=== PATIENT | female | born 1995 | race Caucasian/White ===

== ENCOUNTER 2017-12-27 17:39 | Emergency (ER) | END 2017-12-27 20:14 | disposition home or self-care (01) ==

== ENCOUNTER 2018-10-08 22:54 | Inpatient (IN) | payer MEDICAID ==
[~2018-10-08] VITALS: Ht 157.5 cm; Wt 71.8 kg
[~2018-10-08 22:54] MED LIST: AMOX500C2 PO; IBUP-1542 PO
[2018-10-08 22:55] VITALS: Ht 157.5 cm; Wt 71.8 kg
[2018-10-08] MEDS ORDERED: SODIUM CHLORIDE 0.9% 1L BAG IV* STA (23:03)
[2018-10-08] MEDS ORDERED: ACETAMINOPHEN 325 MG TAB PO STA (23:03)
[2018-10-09] MEDS ORDERED: ALBUTEROL 0.083% (NEB) 2.5 MG/3 ML AMP HHN STA (00:31)
[2018-10-09] MEDS ORDERED: IPRATROPIUM (NEB) 0.5 MG/2.5 ML AMP HHN ONE (01:00)
[2018-10-09] MEDS ORDERED: CEFTRIAXONE 1 GM/50 ML (PMX) 50 ML IVPB ONE (01:00)
[2018-10-09] MEDS ORDERED: AZITHROMYCIN 500MG/NS (PMX) 250 ML IVPB ONE (01:00)
[2018-10-09] MEDS ORDERED: BISACODYL (EC) 5 MG TAB PO PRN (01:30)
[2018-10-09] MEDS ORDERED: NACL 0.9% 3 ML SYG IV SCH (01:30)
[2018-10-09] MEDS ORDERED: ONDANSETRON 4 MG INJ IV PRN (01:30)
[2018-10-09] MEDS ORDERED: DOCUSATE SODIUM 100 MG CAP PO PRN (01:30)
[2018-10-09] MEDS ORDERED: IBUPROFEN 600 MG TAB PO PRN (02:30)
[2018-10-09] MEDS ORDERED: SOD CHLORIDE 0.9% 500 ML IV ONE (02:30)
--- NOTE | 2018-10-09 02:49 | ERD ---
ER Documentation Chief Complaint Chief Complaint cough x 1 week HPI Is a very pleasant 21-year-old female has had fevers chills productive cough for the past week. Cough is productive with green sputum. No nausea no vomiting. Also complains of body aches. No sick contacts. No recent travel. ROS All systems reviewed and are negative except as per history of present illness. Medications Home Meds Active Scripts Amoxicillin* (Amoxicillin*) 500 Mg Cap, 500 MG PO TID for 10 Days, CAP Prov:JASMYNE MCCLURE MD 12/27/17 Ibuprofen* (Motrin*) 600 Mg Tab, 600 MG PO Q6, #15 TAB Prov:JASMYNE MCCLURE MD 12/27/17 Allergies Allergies: Coded Allergies: No Known Allergy (Unverified , 01/13/16) PMhx/Soc History of Surgery: No Anesthesia Reaction: No Hx Neurological Disorder: No Hx Respiratory Disorders: No Hx Cardiac Disorders: No Hx Psychiatric Problems: No Hx Miscellaneous Medical Probl: No Hx Alcohol Use: No Hx Substance Use: No Hx Tobacco Use: No Smoking Status: Never smoker Physical Exam Vitals Vital Signs Date Temp Pulse Resp B/P (MAP) Pulse Ox O2 O2 Flow FiO2 Time Delivery Rate 10/09/18 99.0 02:21 10/09/18 99.0 130 26 97/69 (78) 98 Room Air 4.0 02:17 10/09/18 100.4 120 26 118/82 95 Room Air 4.0 01:00 (94) 10/09/18 118 26 95 4.0 00:52 10/09/18 95 4.0 00:52 10/08/18 100.0 23:35 10/08/18 Nasal 3 23:30 Cannula 10/08/18 100.0 135 26 100/87 93 Room Air 23:20 (91) 10/08/18 102.0 145 26 136/86 86 22:55 (103) Physical Exam Const: No acute distress Head: Atraumatic Eyes: Normal Conjunctiva ENT: Normal External Ears, Nose and Mouth. Neck: Full range of motion. No meningismus. Resp: Clear to auscultation bilaterally Cardio: Regular rate and rhythm, no murmurs Abd: Soft, non tender, non distended. Normal bowel sounds Skin: No petechiae or rashes Back: No midline or flank tenderness Ext: No cyanosis, or edema Neur: Awake and alert Psych: Normal Mood and Affect Result Diagram: 10/08/18231710/08/182317 Results 24 hrs Laboratory Tests Test 10/08/18 23:17 10/08/18 23:18 10/09/18 01:21 Urine Color YELLOW Urine Clarity CLEAR Urine pH 6.0 Urine Specific [place] 1.004 Urine Ketones NEGATIVE mg/dL Urine Nitrite NEGATIVE mg/dL Urine Bilirubin NEGATIVE mg/dL Urine Urobilinogen 1+ mg/dL Urine Leukocyte Esterase TRACE Vinay/ul Urine Microscopic RBC 0 /HPF Urine Microscopic WBC 2 /HPF Urine Squamous Epithelial Cells FEW /HPF Urine Bacteria FEW /HPF Urine Hemoglobin 1+ mg/dL Urine Glucose NEGATIVE mg/dL Urine Total Protein 1+ mg/dl Urine Test NEGATIVE White Blood Count 10.7 10^3/ul Red Blood Count 4.91 10^6/ul Hemoglobin 12.7 g/dl Hematocrit 39.4 % Mean Corpuscular Volume 80.2 fl Mean Corpuscular Hemoglobin 25.9 pg Mean Corpuscular 32.2 g/dl Hemoglobin Concent Red Cell Distribution Width 13.5 % Platelet Count 340 10^3/UL Mean Platelet Volume 9.6 fl Immature Granulocytes % 0.500 % Neutrophils % 78.7 % Lymphocytes % 13.6 % Monocytes % 5.3 % Eosinophils % 1.4 % Basophils % 0.5 % Nucleated Red Blood Cells % 0.0 /100WBC Immature Granulocytes # 0.050 10^3/ul Neutrophils # 8.4 10^3/ul Lymphocytes # 1.5 10^3/ul Monocytes # 0.6 10^3/ul Eosinophils # 0.2 10^3/ul Basophils # 0.1 10^3/ul Nucleated Red Blood Cells # 0.0 10^3/ul Prothrombin Time 13.4 Sec Prothrombin Time Ratio 1.0 INR International 1.01 Normalized Ratio Activated Partial Thromboplast 36.0 Sec Time D-Dimer 549.86 ng/ml D-Dimer Comment Sodium Level 138 mmol/L Potassium Level 3.5 mmol/L Chloride Level 101 mmol/L Carbon Dioxide Level 24 mmol/L Anion Gap 13 Blood Urea Nitrogen 5 mg/dl Creatinine 0.56 mg/dl Est Glomerular Filtrat > 60 mL/min Rate mL/min Glucose Level 126 mg/dl POC Venous Lactate 1.5 mmol/L Calcium Level 8.7 mg/dl Total Bilirubin 0.3 mg/dl Direct Bilirubin 0.00 mg/dl Indirect Bilirubin 0.3 mg/dl Aspartate Amino 41 IU/L Transf (AST/SGOT) Alanine 28 IU/L Aminotransferase (ALT/SGPT) Alkaline Phosphatase 92 IU/L Troponin I < 0.012 ng/ml Total Protein 7.9 g/dl Albumin 4.2 g/dl Globulin 3.70 g/dl Albumin/Globulin Ratio 1.13 Lactic Acid Level 0.9 mmol/L Current Medications Medications Dose Sig/Itzel Start Time Status Last (Trade) Ordered Route PRN Stop Time Admin Dose Reason Admin Sodium 2,110 ml BOLUS OVER 2 10/08/18 DC 10/08/18 Chloride HOURS STAT 23:03 23:30 (NS) IV* 10/08/18 23:05 650 mg ONCE STAT 10/08/18 DC 10/08/18 Acetaminophen PO 23:03 23:35 (Tylenol 10/08/18 23:05 Tab) Ceftriaxone 50 ml @ ONCE ONCE 10/09/18 DC 10/09/18 Sodium 100 mls/hr IVPB 01:00 00:53 10/09/18 01:29 Azithromycin 250 ml @ ONCE ONCE 10/09/18 DC 10/09/18 250 mls/hr IVPB 01:00 00:54 10/09/18 01:59 Albuterol 5 mg ONCE STAT 10/09/18 DC 10/09/18 (Proventil HHN 00:31 00:51 0.083% (Neb)) 10/09/18 00:46 Ipratropium 0.5 mg ONCE ONCE 10/09/18 DC 10/09/18 [place] [facility]N 01:00 00:51 (Atrovent 10/09/18 01:01 0.02% (Neb)) IV Flush 3 ml PER 10/09/18 (NS 3 ml) PROTOCOL IV 01:30 Ondansetron 4 mg Q6H PRN 10/09/18 HCl (Zofran IV 01:30 Inj) NAUSEA/VOMITI NG 650 mg Q6H PRN 10/09/18 Acetaminophen PO .PAIN 1-3 01:30 (Tylenol OR TEMP Tab) Docusate 100 mg Q12H PRN 10/09/18 Sodium PO 01:30 (Colace) .CONSTIPATION Bisacodyl 5 mg DAILY PRN 10/09/18 (Dulcolax) PO 01:30 .CONSTIPATION Ceftriaxone 50 ml @ Q24H IVPB 10/10/18 Sodium 100 mls/hr 01:00 Azithromycin 250 ml @ Q24H IVPB 10/10/18 250 mls/hr 01:00 Sodium 500 ml @ Q1H ONCE 10/09/18 10/09/18 Chloride 500 mls/hr IV 02:30 02:22 10/09/18 03:29 Ibuprofen 600 mg Q6H PRN 10/09/18 10/09/18 (Motrin) PO FEVER 02:30 02:21 GREATER THAN 100.4 Procedures/MDM Chest X-ray 1V Interpreted by me: Soft Tissue: No acute abnormalities Bones: No acute abnormalities Mediastinum/Cardiac Silhouette/Lungs: Bilateral lower lobe infiltrates EKG: Rate/Rhythm: [Normal Sinus Rhythm] QRS, ST, T-waves: [No changes consistent w/ acute ischemia] Impression: [No evidence of ischemia or arrhythmia] Medical decision making: This is a very pleasant patient came in febrile and tachycardic and was flagged for sepsis screening. She has no evidence of sepsis with negative lactic acid and complete normalization of vital signs with fluid a dministration. She is still mildly tachycardic and respiratory rate is elevated likely secondary to pneumonia. I do feel that she likely has sepsis but does not have severe sepsis by any criteria. Patient has been started on Rocephin and azithromycin for likely community-acquired pneumonia pending blood culture results. Patient was also given 30/kg fluid bolus as well. Vital signs recheck shows heart rate 117, respiratory rate 25, blood pressure 109/69, temp 99.6, O2 sat 96% on 2 L nasal cannula Again initial lactic acid is negative. Patient will be admitted to Dr. Kennedy to medical surgical floor Departure Diagnosis: Primary Impression: Bilateral pneumonia Pneumonia type: due to unspecified organism Lung location: lower lobe of lung Qualified Codes: J18.1 - Lobar pneumonia, unspecified organism Condition: Serious JAILYN HANSON October 09, 2018 02:49
--- NOTE | 2018-10-09 02:55 | HP ---
Date/Time of Note Date/Time of Note DATE: 10/09/18 TIME: 02:52 Assessment/Plan VTE Prophylaxis SCD applied (from Nsg): Yes Pharmacological prophylaxis: NA/contraindicated Pharm contraindication: low risk/ambulating Lines/Catheters IV Catheter Type (from Nrsg): Saline Lock Assessment/Plan Hospital Course This is a 22-year-old female being admitted to the telemetry floor for: #1 sepsis: Secondary to suspected underlying community-acquired pneumonia. Ceftriaxone, azithromycin. Cultures have been ordered. Lactic acid within normal values. IV fluid hydration with normal saline. #2 suspected CAP: abx as per above #4 hypoxia: Secondary likely to underlying pneumonia, however given patient's tachycardia and elevated d-dimer we will check a CTA of the chest to rule out pulmonary embolism. Continue supplemental O2. Continue antibiotics. #4 DVT GI prophylaxis: SCDs, no GI prophylaxis indicated Further treatment strategy will be implemented as per the clinical course. Result Diagram: 10/08/188 10/08/18 2318 Results 24hrs Laboratory Tests Test 10/08/18 23:17 10/08/18 23:18 10/09/18 01:21 Urine Color YELLOW Urine Clarity CLEAR Urine pH 6.0 Urine Specific [place] 1.004 Urine Ketones NEGATIVE Urine Nitrite NEGATIVE Urine Bilirubin NEGATIVE Urine Urobilinogen 1+ H Urine Leukocyte Esterase TRACE A Urine Microscopic RBC 0 Urine Microscopic WBC 2 Urine Squamous Epithelial Cells FEW Urine Bacteria FEW A Urine Hemoglobin 1+ H Urine Glucose NEGATIVE Urine Total Protein 1+ H Urine Test NEGATIVE White Blood Count 10.7 Red Blood Count 4.91 # Hemoglobin 12.7 # Hematocrit 39.4 # Mean Corpuscular Volume 80.2 L Mean Corpuscular Hemoglobin 25.9 L Mean Corpuscular Hemoglobin Concent 32.2 Red Cell Distribution Width 13.5 Platelet Count 340 Mean Platelet Volume 9.6 Immature Granulocytes % 0.500 H Neutrophils % 78.7 H Lymphocytes % 13.6 L Monocytes % 5.3 Eosinophils % 1.4 Basophils % 0.5 Nucleated Red Blood Cells % 0.0 Immature Granulocytes # 0.050 H Neutrophils # 8.4 H Lymphocytes # 1.5 Monocytes # 0.6 Eosinophils # 0.2 Basophils # 0.1 Nucleated Red Blood Cells # 0.0 Prothrombin Time 13.4 Prothrombin Time Ratio 1.0 INR International Normalized Ratio 1.01 Activated Partial Thromboplast Time 36.0 H D-Dimer 549.86 H D-Dimer Comment Sodium Level 138 Potassium Level 3.5 Chloride Level 101 Carbon Dioxide Level 24 Anion Gap 13 Blood Urea Nitrogen 5 L Creatinine 0.56 Est Glomerular Filtrat Rate mL/min > 60 Glucose Level 126 POC Venous Lactate 1.5 Calcium Level 8.7 Total Bilirubin 0.3 Direct Bilirubin 0.00 Indirect Bilirubin 0.3 Aspartate Amino Transf (AST/SGOT) 41 Alanine Aminotransferase (ALT/SGPT) 28 Alkaline Phosphatase 92 Troponin I < 0.012 Total Protein 7.9 Albumin 4.2 Globulin 3.70 H Albumin/Globulin Ratio 1.13 Lactic Acid Level 0.9 HPI/ROS Admit Date/Time Admit Date/Time Hx of Present Illness Chief complaint: Cough fever x5 days This is a 22-year female with no past medical history who presented to the emergency department with complaints of cough and fever x1 week. Patient reports that she has felt subjective fevers for the last week. She has had noticed yellow sputum when she coughs. She does report sick contacts. She denies any drug use. She denies any recent travel. Allergies: NKDA Medications: None ROS Const: As per HPI Eyes : No pain discharge or redness or change in visual acuity ENT: No pain, sore throat, congestion, congestion, dysphagia or discharge Respiratory: As per HPI Cardiovascular: No chest pain, palpitation, PND, or edema GI : no change in appetite, abdominal pain, nausea, vomiting, diarrhea, constipation, or change in the color his stool Genitourinary: No dysuria, hematuria, flank pain , discharge or CVA tenderness Musculoskeletal: No joint pain, back pain, neck pain, restricted range of motion in neck or joints Skin: No rash, bruising or hives Neuro: No headache, dizziness, syncope, seizure, focal weakness Endocrine: No polyuria, polydipsia, temperature intolerance Psych: No hallucination, depression, anxiety or suicidal ideation PMH/Family/Social Past Medical History Medical History: no pertinent history Medications Current Medications IV Flush (NS 3 ml) 3 ml PER PROTOCOL IV ; Start 10/09/18 at 01:30 Ondansetron HCl (Zofran Inj) 4 mg Q6H PRN IV NAUSEA/VOMITING; Start 10/09/18 at 01:30 Acetaminophen (Tylenol Tab) 650 mg Q6H PRN PO .PAIN 1-3 OR TEMP; Start 10/09/18 at 01:30 Docusate Sodium (Colace) 100 mg Q12H PRN PO .CONSTIPATION; Start 10/09/18 at 01:30 Bisacodyl (Dulcolax) 5 mg DAILY PRN PO .CONSTIPATION; Start 10/09/18 at 01:30 Ceftriaxone Sodium 50 ml @ 100 mls/hr Q24H IVPB ; Start 10/10/18 at 01:00 Azithromycin 250 ml @ 250 mls/hr Q24H IVPB ; Start 10/10/18 at 01:00 Sodium Chloride 500 ml @ 500 mls/hr Q1H ONCE IV Last administered on 10/09/18at 02:22; Admin Dose 500 MLS/HR; Start 10/09/18 at 02:30; Stop 10/09/18 at 03:29 Ibuprofen (Motrin) 600 mg Q6H PRN PO FEVER GREATER THAN 100.4 Last administered on 10/09/18at 02:21; Admin Dose 600 MG; Start 10/09/18 at 02:30 Coded Allergies: No Known Allergy (Unverified , 01/13/16) Past Surgical History Past Surgical Hx: no surgical history Family History Significant Family History: no pertinent family hx Social History Alcohol Use: none Smoking Status: Never smoker Drug Use: none Exam/Review of Systems Vital Signs Vitals Vital Signs Date Temp Pulse Resp B/P (MAP) Pulse Ox O2 O2 Flow FiO2 Time Delivery Rate 10/09/18 99.0 02:21 10/09/18 130 26 97/69 (78) 98 Room Air 4.0 02:17 Exam Exam General: Currently lying in bed she does not appear to be in any acute distress, she is febrile to touch HEENT: Atraumatic, normocephalic. The pupils are equal, round and reactive. Extraocular motor are intact Neck: Supple with full range of motion. No rigidity or meningismus Chest: Nontender Lungs: Coarse breath sounds bilaterally, diminished at the bases bilaterally Heart: Sinus tachycardia Abdomen: Soft , nontender, nondistended , bowel sounds are present. No guarding no rebound tenderness , No masses or organomegaly. No costovertebral temporal angle mass Extremities: Normal to inspection, no edema no cyanosis Neurologic: Normal mental status, speech normal, cranial nerves II through XII are intact, motor and sensory are intact, Additional Comments PROCEDURE: XR Chest, 1 View CLINICAL INDICATION: Sepsis. TECHNIQUE: Frontal view of the chest. COMPARISON: None FINDINGS: LUNGS: Atelectasis versus early infiltrates at the lung bases. The upper lungs are clear. PLEURAL SPACE: Unremarkable. No pneumothorax. HEART: Unremarkable. No cardiomegaly. MEDIASTINUM: Unremarkable. BONES/JOINTS: Unremarkable. IMPRESSION: 1. Atelectasis versus early infiltrates at the lung bases. 2. The upper lungs are clear. RPTAT: [facility] Juan Jose Larson Physician Aquatic Facility Manager Date Time Electronically viewed and signed by Juan Jose Larson Physician Aquatic Facility Manager on 10/08/2018 23:47 RmC/ CC: JAILYN HANSON [phone] PRIMITIVO MATHEWS October 09, 2018 02:55
[2018-10-09] MEDS ORDERED: SOD CHLORIDE 0.9% 100 ML ONE (03:32)
[2018-10-09] MEDS ORDERED: IOHEXOL 300MG/ML 150 ML BTL ONE (03:32)
--- NOTE | 2018-10-09 10:04 | QN ---
Documentation Comment Observation Note: Time: 4 hours Family Hx: Negative for diabetes Evaluation: Multiple exams showed improving symptoms and no evidence of clinical decompensation. JASPER GOODWIN MD October 09, 2018 10:04
[2018-10-09 13:20] VITALS: BP 126/80; PULSE 101; RESP 20
[2018-10-09] MEDS: ALBUTEROL/IPRATROPIUM (NEB) 3 ML AMP HHN SCH ×2 (15:30→19:06)
--- NOTE | 2018-10-09 15:47 | PN ---
DATE: 10/09/2018 SUBJECTIVE: The patient was seen in the ER following admission. She states her breathing is slightl y better. She had been sick for 5 days prior to this admission, CT chest has confirmed bilateral inf iltrates but no evidence of pulmonary embolism. PHYSICAL EXAMINATION: VITAL SIGNS: Temperature 98.7, pulse is 83, blood pressure 107/76, O2 saturation 98% on 3 L nasal ca nnula. NECK: Supple. No JVD or lymphadenopathy. CARDIAC: S1, S2, no added sounds or murmurs. CHEST: Diminished air entry bilaterally with rales. ABDOMEN: Soft, nontender. No guarding or rebound. EXTREMITIES: No cyanosis, clubbing, or edema. NEUROLOGIC: Grossly intact. No focal deficits. LABORATORY DATA: White count 7.4 with no left shift, hemoglobin 10.5. Chemistry: BUN 3, creatinine 0.56. Lactic acid was 1. IMAGING STUDIES: Chest CT findings as above. IMPRESSION: 1. Community-acquired pneumonia. 2. Acute hypoxemic respiratory failure. 3. Absence of leukocytosis. PLAN: 1. Continue antibiotics for community-acquired pneumonia including azithromycin and Rocephin. 2. Decrease supplemental O2 as tolerated. 3. Check for legionella. Of note, influenza A and B is negative. Dictated By: ADRIANA MORELOS MD SV/NTS Conf#: [id number] DID#: [id number] CC: PRIMITIVO MATHEWS MD;*EndCC*
[2018-10-09] MEDS: GUAIFENESIN/DM 5ML CUP PO PRN ×2 (16:04→23:48)
[2018-10-09] MEDS: ACETAMINOPHEN 325 MG TAB PO PRN (18:36)
[2018-10-09 19:35] VITALS: BP 115/70; PULSE 100; RESP 18
[2018-10-10] VITALS (7 sets, daily range): BP systolic 108–119; BP diastolic 69–81; PULSE 66–117; RESP 16–20
[2018-10-10] MEDS: CEFTRIAXONE 1 GM/50 ML (PMX) 50 ML IVPB SCH (01:17)
[2018-10-10] MEDS: AZITHROMYCIN 500MG/NS (PMX) 250 ML IVPB SCH (01:52)
[2018-10-10] MEDS: ALBUTEROL/IPRATROPIUM (NEB) 3 ML AMP HHN SCH ×4 (01:59→20:17)
[2018-10-10] MEDS: GUAIFENESIN/DM 5ML CUP PO PRN (13:07)
[2018-10-10] MEDS: ACETAMINOPHEN 325 MG TAB PO PRN (15:37)
--- NOTE | 2018-10-10 17:16 | PN ---
Date/Time of Note Date/Time of Note DATE: 10/10/18 TIME: 17:15 Assessment/Plan VTE Prophylaxis Risk score (from Nsg)>0 risk: 1 SCD applied (from Ns): Yes Pharmacological prophylaxis: NA/contraindicated Pharm contraindication: low risk/ambulating Lines/Catheters IV Catheter Type (from Nrsg): Peripheral IV Urinary Cath still in place: No Assessment/Plan Hospital Course SUBJECTIVE: Verbalized improvement in breathing. Denies any pain. OBJECTIVE: Physical Exam General: Adequately build 22 year-old female lying in bed in no apparent distre ss. HEENT: Normocephalic, atraumatic. Eyes: Anicteric sclerae, conjunctivae clear. ENT: Nasal septum midline, oral mucosa moist. Neck supple, no JVD noticed. Respiratory: Bilaterally diminished breath sounds. No use of accessory muscles of respiration. Cardiovascular: S1, S2 heard. No murmurs or gallops. Abdomen: Soft, nontender, and nondistended. Bowel sounds positive in all 4 quadrants. Genitourinary: Deferred. Extremities: No cyanosis, no clubbing, no edema. Peripheral pulses palpable. Neurologic: Cranial nerves II through XII grossly intact. The patient is awake, alert, and oriented. Skin: Normal skin turgor. No skin rashes. Labs & Vitals per chart ASSESSMENT & PLAN 22-year-old female with no significant past medical history who came to the emergency room with chief complaint of cough and fever x5 days with chest imaging showing evidence of community-acquired pneumonia and was admitted to inpatient setting for further treatment and evaluation. 1. Community-acquired pneumonia. -Continue ceftriaxone plus Zithromax. -Oxygen for supportive care. -Inhaled bronchodilators as needed. -Pending serology for Legionella and mycoplasma. 2. Sepsis with febrile illness, tachycardia, and tachypnea, present on admission. -Continue antimicrobials. -No evidence of any septic shock. 3. Dyslipidemia. -Elevated triglycerides and suboptimal HDL. -Low-cholesterol diet advised. 4. Urinary tract infection -The urine culture showing Gram-negative rods with colony count of 80,000-90,000 CFU per mL. -Continue current antimicrobials. 5. Fluids, electrolytes, and nutrition. -Regular diet. 6. DVT prophylaxis. -Bilateral SCDs. 7. Plan. -Continue current antimicrobials. -Await clinical improvement before discharging the patient home. The patient was seen in collaboration with Dr. Pritchard. Result Diagram: 10/10/18 0444 10/10/18 0444 Results 24hrs Laboratory Tests Test 10/10/18 04:41 10/10/18 04:44 B-Type Natriuretic Peptide 340 H Free Thyroxine 1.45 White Blood Count 6.7 Red Blood Count 4.32 Hemoglobin 11.3 L Hematocrit 35.3 L Mean Corpuscular Volume 81.7 L Mean Corpuscular Hemoglobin 26.2 L Mean Corpuscular Hemoglobin Concent 32.0 Red Cell Distribution Width 13.7 Platelet Count 296 Mean Platelet Volume 9.8 Immature Granulocytes % 0.600 H Neutrophils % 61.0 Lymphocytes % 27.4 Monocytes % 5.1 Eosinophils % 5.5 Basophils % 0.4 Nucleated Red Blood Cells % 0.0 Immature Granulocytes # 0.040 H Neutrophils # 4.1 Lymphocytes # 1.8 Monocytes # 0.3 Eosinophils # 0.4 Basophils # 0.0 Nucleated Red Blood Cells # 0.0 Sodium Level 140 Potassium Level 3.7 Chloride Level 107 Carbon Dioxide Level 25 Anion Gap 8 Blood Urea Nitrogen 3 L Creatinine 0.55 Est Glomerular Filtrat Rate mL/min > 60 Glucose Level 98 Hemoglobin A1c 5.4 Calcium Level 8.3 L Magnesium Level 2.2 Total Bilirubin 0.2 Direct Bilirubin 0.00 Indirect Bilirubin 0.2 Aspartate Amino Transf (AST/SGOT) 38 Alanine Aminotransferase (ALT/SGPT) 29 Alkaline Phosphatase 65 Total Protein 6.6 Albumin 3.4 Globulin 3.20 Albumin/Globulin Ratio 1.06 Triglycerides Level 152 H Cholesterol Level 123 LDL Cholesterol, Calculated 67 HDL Cholesterol 26 L Cholesterol/HDL Ratio 4.7 Thyroid Stimulating Hormone (TSH) 0.393 L Exam/Review of Systems Exam Vitals Vital Signs Date Temp Pulse Resp B/P (MAP) Pulse Ox O2 O2 Flow FiO2 Time Delivery Rate 10/10/18 99.0 100 17 113/70 93 Nasal 13:18 (84) Cannula 10/10/18 2.0 08:40 10/09/18 21 19:08 Intake and Output 10/09/18 10/09/18 10/10/18 1515:00 23:00 07:00 IntakeIntake Total 480 ml 1080 ml 1190 ml BalanceBalance 480 ml 1080 ml 1190 ml Results Results 24hrs Laboratory Tests Test 10/10/18 04:41 10/10/18 04:44 B-Type Natriuretic Peptide 340 H Free Thyroxine 1.45 White Blood Count 6.7 Red Blood Count 4.32 Hemoglobin 11.3 L Hematocrit 35.3 L Mean Corpuscular Volume 81.7 L Mean Corpuscular Hemoglobin 26.2 L Mean Corpuscular Hemoglobin Concent 32.0 Red Cell Distribution Width 13.7 Platelet Count 296 Mean Platelet Volume 9.8 Immature Granulocytes % 0.600 H Neutrophils % 61.0 Lymphocytes % 27.4 Monocytes % 5.1 Eosinophils % 5.5 Basophils % 0.4 Nucleated Red Blood Cells % 0.0 Immature Granulocytes # 0.040 H Neutrophils # 4.1 Lymphocytes # 1.8 Monocytes # 0.3 Eosinophils # 0.4 Basophils # 0.0 Nucleated Red Blood Cells # 0.0 Sodium Level 140 Potassium Level 3.7 Chloride Level 107 Carbon Dioxide Level 25 Anion Gap 8 Blood Urea Nitrogen 3 L Creatinine 0.55 Est Glomerular Filtrat Rate mL/min > 60 Glucose Level 98 Hemoglobin A1c 5.4 Calcium Level 8.3 L Magnesium Level 2.2 Total Bilirubin 0.2 Direct Bilirubin 0.00 Indirect Bilirubin 0.2 Aspartate Amino Transf (AST/SGOT) 38 Alanine Aminotransferase (ALT/SGPT) 29 Alkaline Phosphatase 65 Total Protein 6.6 Albumin 3.4 Globulin 3.20 Albumin/Globulin Ratio 1.06 Triglycerides Level 152 H Cholesterol Level 123 LDL Cholesterol, Calculated 67 HDL Cholesterol 26 L Cholesterol/HDL Ratio 4.7 Thyroid Stimulating Hormone (TSH) 0.393 L Medications Medication Current Medications IV Flush (NS 3 ml) 3 ml PER PROTOCOL IV ; Start 10/09/18 at 01:30 Ondansetron HCl (Zofran Inj) 4 mg Q6H PRN IV NAUSEA/VOMITING; Start 10/09/18 at 01:30 Acetaminophen (Tylenol Tab) 650 mg Q6H PRN PO .PAIN 1-3 OR TEMP Last admi nistered on 10/10/18at 15:37; Admin Dose 650 MG; Start 10/09/18 at 01:30 Docusate Sodium (Colace) 100 mg Q12H PRN PO .CONSTIPATION; Start 10/09/18 at 01:30 Bisacodyl (Dulcolax) 5 mg DAILY PRN PO .CONSTIPATION; Start 10/09/18 at 01:30 Ceftriaxone Sodium 50 ml @ 100 mls/hr Q24H IVPB Last administered on 10/10/18 01:17; Admin Dose 100 MLS/HR; Start 10/10/18 at 01:00 Azithromycin 250 ml @ 250 mls/hr Q24H IVPB Last administered on 10/10/18 01:52; Admin Dose 250 MLS/HR; Start 10/10/18 at 01:00 Ibuprofen (Motrin) 600 mg Q6H PRN PO FEVER GREATER THAN 100.4 Last administered on 10/09/18 02:21; Admin Dose 600 MG; Start 10/09/18 at 02:30 Guaifenesin/ Dextromethorphan (Robitussin Dm Liquid Cup) 10 ml Q6H PRN PO COUGH Last administered on 10/10/18 13:07; Admin Dose 10 ML; Start 10/09/18 at 15:30 Albuterol/ Ipratropium (Duoneb) 3 ml Q6H RESP THERAPY HHN Last administered on 10/10/18 07:34; Admin Dose 3 ML; Start 10/09/18 at 15:30 BRENNAN HERRON NP October 10, 2018 17:16
[2018-10-11] MEDS: GUAIFENESIN/DM 5ML CUP PO PRN ×2 (00:23→12:23)
[2018-10-11] MEDS: CEFTRIAXONE 1 GM/50 ML (PMX) 50 ML IVPB SCH (00:24)
[2018-10-11] MEDS: ACETAMINOPHEN 325 MG TAB PO PRN (01:05)
[2018-10-11] MEDS: AZITHROMYCIN 500MG/NS (PMX) 250 ML IVPB SCH (01:33)
[2018-10-11] MEDS: ALBUTEROL/IPRATROPIUM (NEB) 3 ML AMP HHN SCH ×3 (01:37→14:00)
[2018-10-11 02:27] VITALS: BP 104/62; PULSE 100; RESP 18
[2018-10-11 08:59] VITALS: BP 105/63; PULSE 92; RESP 22
[2018-10-11] MEDS ORDERED: AMOX500C2 PO (13:03)
[2018-10-11] MEDS ORDERED: DOXY100T20 PO (13:03)
[2018-10-11 14:52] VITALS: BP 113/72; PULSE 76; RESP 18
--- NOTE | 2018-10-11 16:22 | PDOCDIS ---
Discharge Instructions CONDITION [id number] Patient Condition: [id number] Stable HOME CARE INSTRUCTIONS: [id number] Diet Instructions: [id number] Low Fat /Cholesterol FOLLOW UP/APPOINTMENTS Follow-up Plan Tanner Cramer MD Specialty: Internal Medicine Office Address: [address] [place], [place] [id number] Office OTHER ORDERS: Other Orders: 1. Complete the course of antibiotics. 2. Follow a low-cholesterol diet. 3. Resume activities as tolerated. 4. Follow-up with your primary care physician in 1 week for a repeat chest x- ray. If you do not have a primary care physician, please call Dr. Tanner Cramer's office. 5. Please go to the nearest emergency room if you have worsening symptoms of fevers, shortness of breath, or any other unusual signs/symptoms. BRENNAN HERRON NP October 11, 2018 16:22
--- NOTE | 2018-10-11 17:17 | DS ---
Date/Time of Note Date/Time of Note DATE: 10/11/18 TIME: 17:15 Discharge Summary Admission/Discharge Info Admit Date/Time October 09, 2018 at 00:56 Discharge Date/Time Discharge Diagnosis 1. Community-acquired pneumonia. 2. S/P sepsis with febrile illness, tachycardia, and tachypnea, present on admission. 3. Dyslipidemia. Elevated triglycerides and suboptimal HDL. 4. Urinary tract infection Patient Condition: Stable Procedures CTA Chest IMPRESSION: 1. No evidence for pulmonary embolus or aortic dissection. 2. Extensive probable left greater than right lower lobe and right middle lobe pneumonia. Infiltrates are much more significant appearing than suggested on chest x-ray. No associated effusion. Hx of Present Illness This is a 22-year-old female with no significant past medical history who came to the emergency room with chief complaint of cough and fever x5 days with chest imaging showing evidence of community-acquired pneumonia and was admitted to inpatient setting for further treatment and evaluation. Hospital Course The patient was started on ceftriaxone plus Zithromax. The patient's CT scan of the chest was negative for any PE however, this confirmed evidence of multifocal pneumonia. Etiology of the patient's significant pneumonia remains unclear. The patient is not immunocompromised. The patient is not a drug abuser. The patient's mycoplasma serology was negative. The patient's serology for Legionella is pending. Nevertheless, the patient's pneumonia responded well to antimicrobial strategy. The patient was maintained on supplemental oxygen and inhaled bronchodilators for supportive care. The patient had evidence of sepsis with underlying tachycardia, febrile illness, and tachypnea, present on admission secondary to underlying community-acquired pneumonia. The patient did not have any evidence of any septic shock. The patient was incidentally found to have dyslipidemia with elevated triglycerides and suboptimal HDL. The patient was advised on a low-cholesterol diet. The patient was also noticed to have urinary tract infection with urine culture showing Gram-negative rods with colony count of 80,000 and 90,000 CFU per mL. The patient denied any urinary symptoms. The patient was maintained on cephalosporins. Upon discharge, the patient will be switched to amoxicillin plus doxycycline, to complete a course of 7 days. The patient had a stable hospital course. The patient is currently on room air saturating more than 92%. The patient's saturation was 91% after exertion. The patient is stable for outpatient follow-up. Discharge Instructions 1. Complete the course of antibiotics. 2. Follow a low-cholesterol diet. 3. Resume activities as tolerated. 4. Follow-up with your primary care physician in 1 week for a repeat chest x- ray. If you do not have a primary care physician, please call Dr. Tanner Cramer's office. 5. Please go to the nearest emergency room if you have worsening symptoms of fevers, shortness of breath, or any other unusual signs/symptoms. The patient verbalized understanding of her discharge instructions. The patient was seen in collaboration with Dr. Pritchard. Home Meds Active Scripts Doxycycline Hyclate* (Doxycycline Hyclate*) 100 Mg Tablet., 100 MG PO BID for 7 Days, #14 TAB Prov:BRENNAN HERRON [employer] 10/11/18 Amoxicillin* (Amoxicillin*) 500 Mg Cap, 500 MG PO Q8 for 7 Days, #21 CAP Prov:BRENNAN HERRON [employer] 10/11/18 Discontinued Scripts Amoxicillin* (Amoxicillin*) 500 Mg Cap, 500 MG PO TID for 10 Days, CAP Prov:JASMYNE MCCLURE MD 12/27/17 Ibuprofen* (Motrin*) 600 Mg Tab, 600 MG PO Q6, #15 TAB Prov:JASMYNE MCCLURE MD 12/27/17 Follow-up Plan Tanner Cramer MD Specialty: Internal Medicine Office Address: [address] [place] [address] Office Primary Care Provider Not On Staff Doctor Time spent on discharge: > 30 minutes Pending Labs Laboratory Tests Test 10/11/18 04:54 White Blood Count 5.1 10^3/ul (4.8-10.8) Red Blood Count 4.20 10^6/ul (4.20-5.40) Hemoglobin 11.0 g/dl (12.0-16.0) Hematocrit 34.3 % (37.0-47.0) Mean Corpuscular Volume 81.7 fl (82.0-101.0) Mean Corpuscular Hemoglobin 26.2 pg (29.0-33.0) Mean Corpuscular Hemoglobin Concent 32.1 g/dl (32.0-37.0) Red Cell Distribution Width 13.6 % (11.5-14.5) Platelet Count 321 10^3/UL (140-415) Mean Platelet Volume 9.7 fl (7.4-10.4) Immature Granulocytes % 0.600 % (0.001-0.429) Neutrophils % 43.2 % (39.0-77.0) Lymphocytes % 40.6 % (15.0-51.0) Monocytes % 6.1 % (0.0-11.0) Eosinophils % 9.1 % (0.0-7.0) Basophils % 0.4 % (0.0-2.0) Nucleated Red Blood Cells % 0.0 /100WBC (0.0-0.0) Immature Granulocytes # 0.030 10^3/ul (0.0-0.031) Neutrophils # 2.2 10^3/ul (1.6-7.5) Lymphocytes # 2.1 10^3/ul (0.8-2.9) Monocytes # 0.3 10^3/ul (0.3-0.9) Eosinophils # 0.5 10^3/ul (0.0-0.5) Basophils # 0.0 10^3/ul (0.0-0.1) Nucleated Red Blood Cells # 0.0 10^3/ul (0.0-0.0) Sodium Level 142 mmol/L (135-144) Potassium Level 3.6 mmol/L (3.5-5.1) Chloride Level 108 mmol/L (97-110) Carbon Dioxide Level 23 mmol/L (21-31) Anion Gap 11 (5-13) Blood Urea Nitrogen 6 mg/dl (7-20) Creatinine 0.44 mg/dl (0.44-1.00) Est Glomerular Filtrat Rate mL/min > 60 mL/min (>60) Glucose Level 95 mg/dl (70-220) Calcium Level 8.3 mg/dl (8.4-10.2) Phosphorus Level 4.9 mg/dl (2.5-4.9) Magnesium Level 2.2 mg/dl (1.7-2.5) Total Bilirubin 0.2 mg/dl (0.2-1.3) Direct Bilirubin 0.00 mg/dl (0.00-0.20) Indirect Bilirubin 0.2 mg/dl (0-1.1) Aspartate Amino Transf (AST/SGOT) 35 IU/L (15-46) Alanine Aminotransferase (ALT/SGPT) 32 IU/L (13-69) Alkaline Phosphatase 73 IU/L (42-121) Total Protein 7.0 g/dl (6.1-8.1) Albumin 3.4 g/dl (3.3-4.9) Globulin 3.60 g/dl (1.3-3.2) Albumin/Globulin Ratio 0.94 BRENNAN HERRON NP October 11, 2018 17:17
== END 2018-10-11 19:20 | disposition home or self-care (01) | DRG 871 ==
LOC: E/R 22:54 → 2NE 10-09 00:56 → EDBEDREQSVC 10-09 03:19
PROVIDERS: ADMIT Family Medicine; ATTEND Family Medicine
DX: A41.9 Sepsis, unspecified organism (principal); J18.9 Pneumonia, unspecified organism; J96.01 Acute respiratory failure with hypoxia; N39.0 Urinary tract infection, site not specified
CPT/HCPCS: 36415; 71045; 71275; 80053; 80061; 80307; 81001; 83036; 83605; 83735; 83880; 84100; 84439; 84443; 84484; 84703; 85025; 85378; 85610; 85730; 86738; 87086; 87400; 87449; 93005; 94640; 94664; 96374; 96375; J0456; J0696; J7030; J7040; Q9967